=== PATIENT | male | born 1965 | race Caucasian/White ===

== ENCOUNTER 2025-08-20 14:05 | Outpatient (CLI) | payer BC, SELFPAY ==
--- NOTE | 2025-08-20 14:28 | RAD_ITS ---
PROCEDURE: HAND MIN 3 VIEWS 08/20/2025 REASON FOR EXAM: PAIN TECHNIQUE: Procedure Code: MANI Modality: DX Procedure: HAND MIN 3 VIEWS COMPARISON: None. FINDINGS: No acute bony elements. Radiocarpal joint space narrowing with sclerosis. 1st metacarpophalangeal joint space narrowing with sclerosis and bone overgrowth. No soft tissue abnormalities. RAD/Hand Min 3 Views IMPRESSION: No acute osseous abnormalities. Osteoarthritis. Reading Location: [id number]
--- NOTE | 2025-08-20 14:28 | RAD_ITS ---
PROCEDURE: KNEE 4 OR MORE VIEWS 08/20/2025 REASON FOR EXAM: Pain, decreased range of motion TECHNIQUE: Procedure Code: RADKN Modality: DX Procedure: KNEE 4 OR MORE VIEWS Right knee four views COMPARISON: None FINDINGS: Mild posterior patellar and medial compartment arthrosis, moderate lateral compartment arthrosis. Subchondral sclerosis noted on both tibial plateaus without subchondral erosions or lucencies. No significant spur formation. No foreign body or suspicious soft tissue swelling, no joint effusion RAD/Knee 4 or More Views IMPRESSION: Tricompartmental arthrosis, most pronounced in the lateral compartment. No acu te traumatic injury or joint effusion Reading Location: [id number]
--- NOTE | 2025-08-20 14:28 | RAD_ITS ---
PROCEDURE: HAND MIN 3 VIEWS 08/20/2025 REASON FOR EXAM: PAIN TECHNIQUE: Procedure Code: MANI Modality: DX Procedure: HAND MIN 3 VIEWS COMPARISON: None. FINDINGS: No acute bony abnormalities. Radiocarpal and ulnar carpal joint space narrowing with sclerosis. 1st carpometacarpal and 2nd metacarpophalangeal joint space narrowing with sclerosis. No soft tissue abnormalities. RAD/Hand Min 3 Views IMPRESSION: No acute bony abnormalities. Osteoarthritis. Reading Location: [id number]
--- NOTE | 2025-08-20 14:28 | RAD_ITS ---
PROCEDURE: KNEE 4 OR MORE VIEWS 08/20/2025 REASON FOR EXAM: Pain, decreased range of motion TECHNIQUE: Left knee, four views Procedure Code: RADKN Modality: DX Procedure: KNEE 4 OR MORE VIEWS COMPARISON: None FINDINGS: No demonstrated fracture or suspicious osseous lesion. Mild tricompartmental degenerative changes with subchondral sclerosis noted on both tibial plateaus. No subchondral erosions or lucencies. No significant spur formation No foreign body or suspicious soft tissue swelling, no joint effusion. RAD/Knee 4 or More Views IMPRESSION: Mild tricompartmental arthrosis, no acute fracture, suspicious osseous lesion o r joint effusion Reading Location: [id number]
[2025-08-20 17:39] LABS: Hematocrit 42.7 % (40-54); Hemoglobin 14.9 g/dL (13.0-16.5); Immature Granulocytes Count 0.070 X10^3/uL (0.0-0.0); Mean Corp Hgb Conc 34.9 g/dL (32-36); Mean Corpuscular Volume 88.2 fL (80-94); Mean Platelet Vol. 9.3 fl (6.2-12.0); NRBC Flagged by Analyzer 0 % (0-5); Platelet Count 387 K/mm3 (150-450); RBC Distribution Width CV 13.6 % (11.6-14.6); RBC Distribution Width SD 44.0 fl (35.1-43.9); Red Blood Count 4.84 M/mm3 (4.6-6.2); White Blood Count 11.2 K/mm3 (4.4-11.0)
[2025-08-20 18:28] LABS: AST(SGOT) 21 U/L (<=37); Alanine Aminotransfer ALT/SGPT 23 U/L (<=46); Albumin, Serum 4.3 g/dL (3.4-4.8); Alkaline Phosphatase 115 U/L (40-129); Anion Gap 12 (7-18); BUN 15 mg/dL (4-19); BUN/Creat Ratio 18.4 RATIO (10-20); Calcium,Total 9.4 mg/dL (7.6-11.0); Carbon Dioxide 25.3 mmol/L (20.0-29.0); Chloride 102 mmol/L (96-106); Globulin 2.9 g/dL (2.2-4.2); Glucose 97 mg/dL (70-99); Hepatitis B Surface Antigen Nonreactive (Nonreactive); Hepatitis C Antibody Nonreactive (Nonreactive); Potassium 4.0 mmol/L (3.5-5.1)
[2025-08-20 19:07] LABS: CRP 8.93 mg/L (0.0-3.0)
[2025-08-22 11:08] LABS: ANTINUCLEAR ANTIBODIES DIRECT Negative (Negative)
[2025-08-22 12:08] LABS: QNTFERON TB Mitogen Value > 10.00 IU/mL (.); QNTFERON TB Nil Value 0.08 IU/mL (.); QNTFERON TB1+ Ag Value 0.05 IU/mL (.); QNTFERON TB2+ Ag Value 0.07 IU/mL (.); QNTIFERON TB Positive Criteria Negative (Negative)
== END 2025-08-20 23:59 | disposition home or self-care (01) ==
LOC: MTLAB 14:09
PROVIDERS: PCP Family Medicine; Referring Provider Internal Medicine Rheumatology; Visit Provider Internal Medicine Rheumatology
DX: M05.79 Rheumatoid arthritis with rheumatoid factor of multiple sites without organ or systems involvement (principal); M17.0 Bilateral primary osteoarthritis of knee; M25.561 Pain in right knee; M25.562 Pain in left knee; M79.641 Pain in right hand; M79.642 Pain in left hand
CPT/HCPCS: 36415; 73130; 73564; 80053; 85025; 85652; 86038; 86140; 86200; 86431; 86480; 86706; 86803; 87340